=== PATIENT | female | born 1990 | race African-American/Black ===

== ENCOUNTER → 2016-11-24 | Outpatient (CLI) | payer OTHER ==
[~2016-11-24] MED LIST: FLEXERIL10 MG PO; HYDROCODONE-A1 UDTA2 PO; IBUPROFEN800 MG PO; IRON325 ( 651 PO; ONDANSETRON HCL4 M1 PO; PRENATAL1 TA1 PO; TESSALON PERLE100 M1 PO
[2016-11-24 12:45] LABS: ALBUMIN SERUM 3.7 g/dL (3.5-5.0); ALKALINE PHOSPHATASE 66 U/L (32-92); ALT (SGPT) 21 U/L (10-40); AST (SGOT) 17 U/L (10-42); BILIRUBIN,TOTAL 0.3 mg/dL (0.2-2.0); BLOOD UREA NITROGEN 8 mg/dL (9-23); BUN/CREATININE RATIO 11.42; CALCIUM SERUM 9.4 mg/dL (8.4-10.2); CARBON DIOXIDE 25 mmol/L (22-31); CHLORIDE 106 mmol/L (100-111); CREATININE SERUM 0.7 mg/dL (0.6-1.4); GLOM FILT RATE Estimated ABOVE60 mL/min (>60); GLUCOSE FASTING 84 mg/dL (70-110); PROTEIN TOTAL SERUM 6.9 g/dL (6.0-8.3); SODIUM 141 mmol/L (135-145)
== END | disposition home or self-care (01) ==
LOC: CAMB 11:26
PROVIDERS: Surgery
DX: Z01.812 Encounter for preprocedural laboratory examination (principal); K80.20 Calculus of gallbladder without cholecystitis without obstruction
CPT/HCPCS: 36415; 80053

== ENCOUNTER → 2016-12-01 | Day surgery (SDC) | payer OTHER ==
--- NOTE | ~2016-12-01 | OR ---
Unit #: [id number] #: [id number] Patient: FREDDIE CURTIS [id number] [address] [address] [id number] O MR#: [id number] NAME: FREDDIE CURTIS ROOM: Date of Procedure: 12/01/2016 Admission Date: 12/01/2016 Surgeon: Willi Mitchell Jr., M.D. : 1990 Attending Physician: Willi Mitchell Jr., M.D. Primary Care Physician: Primary Care Physician No OPERATIVE REPORT INDICATION FOR PROCEDURE The patient is an obese 26-year-old black female, recently presented to the office complaining of intermittent mid epigastric and right upper quadrant abdominal pain. Workup revealed evidence of small stones with sludge in the gallbladder. It was felt she is having biliary colic symptoms. She is 4 months . She is brought in this time at her request for laparoscopic cholecystectomy. She understands the procedure including the risks, including that of common duct injury, biliary leak, and bleeding, and intra-abdominal organ injury, and consents. PREOPERATIVE DIAGNOSES Chronic cholecystitis with cholelithiasis. POSTOPERATIVE DIAGNOSES Chronic cholecystitis with cholelithiasis, also noting some omental adhesions to the anterior abdominal wall inferiorly from her recent . ANESTHESIA General with endotracheal intubation and plain 0.5% Marcaine. PROCEDURE PERFORMED Laparoscopic cholecystectomy. DESCRIPTION OF PROCEDURE The patient was positioned in supine position. After being anesthetized and intubated, she was prepped and draped in routine fashion for laparoscopic cholecystectomy. A small supraumbilical incision was made approximately 1 cm in length. This was carried down to the fascia. Fascia was lifted between 2 Shailesh clamps and a Veress needle introduced in the abdomen. The abdomen was then inflated with CO2 gas. A 5-mm port was introduced into the abdomen followed by the camera. There was no evidence of any injury related to introduction of the port of the Veress needle. Brief intra-abdominal exploration was carried out. The patient was noted to have some omental adhesions to the anterior abdominal wall inferiorly with otherwise no other specific abnormalities. The gallbladder appeared chronically inflamed. Two 5-mm ports were placed laterally and an 11-mm port just to the right of the upper midline. The gallbladder was lifted. Dissection was carried out in the triangle of Calot, cystic duct which was only 1 to 2 mm in diameter was hemoclipped x4 and divided approximately 1 cm from its junction with the common duct. Cystic artery was identified, hemoclipped x3, and divided. The Unit #: [id number] #: [id number] Patient: FREDDIE CURTIS gallbladder was then removed from its bed with the hook cautery using a current of 20. There was one small what appeared to be a duct of Luschka, which was hemoclipped and divided. After the gallbladder was released, it was placed in EndoCatch bag, and the larger port site had to be extended approximately a 1 cm for removal of this large gallbladder. After the gallbladder was removed, it was sent to pathology. The port was replaced. Subhepatic space checked. There was no evidence of any bleeding from the gallbladder bed. The clips on cystic duct and cystic artery were intact with no evidence of any leak or bleeding. At this point, the ports removed. There was no evidence of any bleeding from the port sites. The fascia in the larger port site was approximated with 2 separate [id number] 0 Vicryl sutures. After the CO2 had been expressed from the abdomen and the ports were removed, the port sites were irrigated and hemostasis achieved with Bovie cautery. At this time, the skin edges were approximated with stainless-steel skin clips and skin stapling device. Sterile dressings were applied externally. Estimated blood loss less than 50 mL. The patient received less than 1000 mL crystalloid solution during the procedure. Sponges and instruments counts were correct x3. No drains used. No complications. The patient was taken to the recovery room with stable vital signs in satisfactory condition. Dictated by... Willi Mitchell Jr., M.D. JMB/malini TD: 12/01/2016 08:50 JOB #: [id number] OPERATIVE REPORT X Willi Mitchell MD X PROCEDURE OPERATIVE NOTE
== END | disposition home or self-care (01) ==
LOC: CSUR 05:43
DX: K80.10 Calculus of gallbladder with chronic cholecystitis without obstruction (principal); L92.8 Other granulomatous disorders of the skin and subcutaneous tissue; J30.9 Allergic rhinitis, unspecified; E66.01 Morbid (severe) obesity due to excess calories; Z98.890 Other specified postprocedural states; Z79.899 Other long term (current) drug therapy; Z83.42 Family history of familial hypercholesterolemia; Z82.49 Family history of ischemic heart disease and other diseases of the circulatory system; Z81.8 Family history of other mental and behavioral disorders; Z83.3 Family history of diabetes mellitus
CPT/HCPCS: 84703; 88304; J0131; J0330; J0690; J1650; J1885; J3010

== ENCOUNTER 2017-02-12 19:00 | Emergency (ER) | payer OTHER ==
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
== END 2017-02-12 23:49 | disposition home or self-care (01) ==
LOC: CFTX 19:00 → CED 19:00 → CFTX 21:33
DX: S13.4XXA Sprain of ligaments of cervical spine, initial encounter (principal); Z98.890 Other specified postprocedural states; V43.52XA Car driver injured in collision with other type car in traffic accident, initial encounter
CPT/HCPCS: 72040; 99283